=== PATIENT | male | born 1995 | race Caucasian/White ===

== ENCOUNTER 2018-06-23 00:24 | Inpatient (IN) ==
[2018-06-23] MEDS ORDERED: Acetaminophen 325 MG Tablet PO PRN (05:00)
[2018-06-23] MEDS ORDERED: Aluminum/Magnesium/Simethacone Susp 30 ML UDC PO PRN (05:01)
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
[2018-06-23 15:17] LABS: Baso % (Auto) 0.7 % (0.0-2.0); Eos # (Auto) 0.1 th/mm3 (0.0-0.4); Eos % (Auto) 0.8 % (0.0-4.0); Hematocrit 44.2 % (39.0-51.0); Hemoglobin 15.5 gm/dL (13.0-17.0); Lymph # (Auto) 1.7 th/mm3 (1.0-4.8); Lymph % (Auto) 23.2 % (9.0-44.0); Mean Corpuscular HGB Conc 35.1 % (32.0-36.0); Mean Corpuscular Hemoglobin 30.9 pg (27.0-34.0); Mean Corpuscular Volume 88.1 fL (80.0-100.0); Mean Platelet Volume 8.3 fL (7.0-11.0); Mono # (Auto) 0.8 th/mm3 (0.0-0.9); Mono % (Auto) 10.7 % (0.0-8.0); Neut # (Auto) 4.8 th/mm3 (1.8-7.7); Neut % (Auto) 64.6 % (16.0-70.0); Platelet Count 309 th/mm3 (150-450); Red Blood Count 5.01 mil/mm3 (4.50-5.90); Red Cell Distribution Width 13.4 % (11.6-17.2); White Blood Count 7.4 th/mm3 (4.0-11.0)
[2018-06-23 15:39] LABS: Albumin 4.5 g/dL (3.4-5.0); Anion Gap 10 meq/L (5-15); Aspartate Aminotransferase 19 U/L (15-39); Blood Urea Nitrogen 13 mg/dL (7-18); Calcium 8.7 mg/dL (8.5-10.1); Carbon Dioxide 27.5 meq/L (21.0-32.0); Chloride 104 meq/L (98-107); Glomerular Filtration Rate 83 mL/min (>89); Glucose,Random 91 mg/dL (74-106); Potassium 3.8 meq/L (3.5-5.1); Sodium 141 meq/L (136-145)
[2018-06-23 15:49] LABS: Alanine Aminotransferase 22 U/L (9-52); Alkaline Phosphatase 112 U/L (45-117); Thyroid Stimulating Hormone 0.591 uIU/mL (0.358-3.740); Total Protein 8.4 g/dL (6.4-8.2)
--- NOTE | 2018-06-24 15:42 | P.PNPSY ---
Subjective Remarks: Patient seen for follow-up, chart reviewed. Discussion with nursing staff reported that patient no behavioral disturbances, compliant with medications. Patient did have one episode of emesis earlier this morning. Patient was found in the room noted B, cooperative. Patient states that he is feeling more positive, feeling better. He states having spoken with his girlfriend and appear that they are reconciling and feels supported by his family over the phone. Patient stated that everything is more positive. He reports having slept well last evening but did report having some vomiting earlier this morning but states that it is likely th was secondary from not having eaten breakfast after taking his medications. He denies any other adverse drug reactions, patient did tolerate lithium well yesterday. He agrees to continue treatment denies any suicidal issues at this time but likely minimizing depressive symptoms as his mood is likely linked to his status of his relationship with his girlfriend which was likely the stressor and triggering event to his recent suicide attempt. Patient denies any perceptual disturbances or delusions. Review of Systems All other systems reviewed negative except as stated in HPI Mental Status Examination Appearance: Appropriate Consciousness: Alert Orientation: Person, Place, Date/Time Motor Activity: Normal gait Speech: Unremarkable Language: Adequate Fund of Knowledge: Inadequate Attention and Concentration: Inadequate Memory: Unremarkable Mood: Anxious Affect: Anxious Thought Process & Associations: Intact, Linear Thought Content: Appropriate Hallucination Type: None Delusion Type: None Suicidal Ideation: Yes (Denies but is unreliable to contract for safety at this time.) Suicidal Plan: No Suicidal Intention: No Homicidal Ideation: No Homicidal Plan: No Homicidal Intention: No Insight: Poor Judgment: Impulsive Assessment and Plan - Assessment (1) Adjustment disorder with depressed mood Code(s): F43.21 - Adjustment disorder with depressed mood Status: Acute (2) Cannabis abuse Code(s): F12.10 - Cannabis abuse, uncomplicated Status: Acute - Plan Plan: Patient at this time reporting feeling less depressed denying suicide ideations but also is requesting discharge today despite extensive discussion of having patient monitored on lithium and requiring follow-up blood levels to assure therapeutic effect. It is unclear whether patient will return back to family as there is ongoing DCF case against him regarding his behavior toward his mother and aunt. We will continue current treatment. Continue to monitor mood and behavior. Discharge planning in progress. Justification for Continued Inpatient Stay: At risk of further decompensation at lower level care.
--- NOTE | 2018-06-24 20:49 | ECG ---
Date Performed: 06/23/2018 Time Performed: 14:08:07 PTAGE: 22 years EKG: Sinus rhythm WITH SINUS ARRHYTHMIA MARKED RIGHT AXIS DEVIATION MODERATE INTRAVENTRICULAR CONDUCTION DELAY ABNORMA L ECG NO PREVIOUS TRACING DOCTOR: Mike Antoine Interpretating Date/Time 06/24/2018 20:42:47
--- NOTE | 2018-06-25 16:35 | P.PNPSY ---
Subjective Remarks: Reviewed electronic medical records and discussed case with staff. Follow-up was conducted in the hallway with DHAVAL Hood present. His nurse reports that he has been on the phone quite a bit with his supposed ex-girlfriend. He reports she is coming to visit him today. Overall he has been compliant cooperative with staff. He reports that he is "doing good". He does state that he feels his morning dose of lithium is causing him an upset stomach. Explained to him that I will order some Protonix to see if that helps. Reports otherwise he is sleeping and eating well. Is cooperative and pleasant throughout the evaluation. Mental Status Examination Appearance: Appropriate Consciousness: Alert Orientation: Person, Place, Date/Time Motor Activity: Normal gait Speech: Unremarkable Language: Adequate Fund of Knowledge: Inadequate Attention and Concentration: Inadequate Memory: Unremarkable Mood: Anxious Affect: Anxious Thought Process & Associations: Intact, Linear Thought Content: Appropriate Hallucination Type: None Delusion Type: None Suicidal Ideation: Yes (Denies but is unreliable to contract for safety at this time.) Suicidal Plan: No Suicidal Intention: No Homicidal Ideation: No Homicidal Plan: No Homicidal Intention: No Insight: Poor Judgment: Impulsive Assessment and Plan - Assessment (1) Adjustment disorder with depressed mood Code(s): F43.21 - Adjustment disorder with depressed mood Status: Acute - Plan Plan: Patient will be reevaluated by the attending psychiatrist. Continue with current treatment plan. Patient at this time reporting feeling less depressed denying suicide ideations but also is requesting discharge today despite extensive discussion of having patient monitored on lithium and requiring follow-up blood levels to assure therapeutic effect. It is unclear whether patient will return back to family as there is ongoing DCF case against him regarding his behavior toward his mother and aunt. We will continue current treatment. Continue to monitor mood and behavior. Discharge planning in progress. Justification for Continued Inpatient Stay: Moving this patient to a less restrictive environment would likely result in decompensation.
--- NOTE | 2018-06-26 17:42 | P.PNPSY ---
Subjective Remarks: Reviewed electronic medical records and discussed case with staff. Follow-up was conducted in the hallway with DHAVAL Nur present. Patient states that he had a good visit with his girlfriend today. States that he slept well his appetite's been good. He reports being in a good mood. He denies any suicidal ideation. He states that he is hopeful for discharge tomorrow. The nurse did advise that Dr. Issa was wanting some lab results prior to discharging him. The patient expresses knowledge of this. Mental Status Examination Appearance: Appropriate Consciousness: Alert Orientation: Person, Place, Date/Time Motor Activity: Normal gait Speech: Unremarkable Language: Adequate Fund of Knowledge: Inadequate Attention and Concentration: Inadequate Memory: Unremarkable Mood: Anxious Affect: Anxious Thought Process & Associations: Intact, Linear Thought Content: Appropriate Hallucination Type: None Delusion Type: None Suicidal Ideation: Yes (Denies but is unreliable to contract for safety at this time.) Suicidal Plan: No Suicidal Intention: No Homicidal Ideation: No Homicidal Plan: No Homicidal Intention: No Insight: Poor Judgment: Impulsive Assessment and Plan - Assessment (1) Adjustment disorder with depressed mood Code(s): F43.21 - Adjustment disorder with depressed mood Status: Acute - Plan Plan: Patient will be reevaluated by the attending psychiatrist. Continue with current treatment plan. Justification for Continued Inpatient Stay: Moving this patient to a less restrictive environment would likely result in decompensation.
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
== END 2018-06-27 14:10 | disposition home or self-care (01) | DRG 885 ==
LOC: H270 02:30 → UNDODISIN 06-27 12:20
PROVIDERS: ADMIT Student in an Organized Health Care Education/Training Program; ATTEND Student in an Organized Health Care Education/Training Program
CPT/HCPCS: Q0163